=== PATIENT | male | born 1975 | race African-American/Black ===

== ENCOUNTER 2022-10-23 09:37 | Emergency (ER) | payer BC, SELFPAY ==
[2022-10-23 09:37] VITALS: BP 142/100; PULSE 77; RESP 18; TEMP 36.7; O2SAT 98; BMI 21.2
[2022-10-23 10:24] LABS: Hematocrit 33.9 % (42.0-52.0); Mean Corpuscular Volume 101.2 fL (80.0-98.0); Mean Platelet Volume 10.2 fL (9.4-12.4); Platelet Count 139 X10*3/uL (160-400); Red Blood Count 3.35 X10*6/uL (4.60-5.80); Red Cell Distribution Width 13.2 % (11.0-16.0)
[2022-10-23 10:25] LABS: Hemoglobin 11.4 g/dl (14.0-18.0); WBC ABN SCTR FOR CBC 1; White Blood Count 5.2 X10*3/uL (4.8-10.8)
[2022-10-23 10:26] LABS: Mean Corpuscular HGB Conc 33.6 g/dl (31.0-36.0)
[2022-10-23 10:33] VITALS: BP 135/84; PULSE 63; RESP 17; TEMP 37.1; O2SAT 100
--- NOTE | 2022-10-23 11:14 | ED_ITS ---
HPI - Abdominal Pain General Chief Complaint: Abdominal Pain Stated Complaint: Abdominal Pain Time Seen by Provider: 10/23/22 10:41 Source: patient Mode of arrival: ambulatory Limitations: no limitations History of Present Illness HPI narrative: 47-year-old male who presents emergency department for evaluation of abdominal pain. The patient states that he has been drinking 1/2 pt of Rebekah vincenzo, daily for months. He states that over the past 4 days he has not been able to drink alcohol secondary to abdominal pain. Patient points to his epigastric area describes the pain is a constant, not like sensation. He states he has had this pain in the past but the pain is now constant and severe, 7/10 at its worst. Patient also had nausea, vomiting and decreased oral intake secondary to his symptoms. Patient states that he was diagnosed with pancreatitis in March of 2022 the pain feels similar to his pancreatitis pain Related Data Previous Rx's Medication Instructions Recorded omeprazole 20 mg capsule,delayed 20 mg PO DAILY 30 days #30 caps 10/23/22 release Allergies Allergy/AdvReac Type Severity Reaction Status Date / Time No Known Allergies Allergy Unverified 12/14/19 16:56 [No Known Allergies*] Review of Systems Review of Systems Yes all other systems are reviewed and are negative [facility] Past Medical History [facility] Narrative: Past medical history: Pancreatitis, alcohol use disorder. Surgical history: None. Social history: He denies tobacco use. He does admit to drinking 1/2 pt of Rebekah daily but has not drink over the past 4 days, he does use a marijuana vape pen but does not use any other drugs. Social History Social History Alcohol intake: current Alcohol intake frequency: holidays/special occasions only Smoked in Last 30 Days: No Use of substances other than those prescribed or required for medical reasons: Yes Substance Use Type: Marijuana Advance Directives: No Advance Directives Information Provided: Yes Physical Exam ED Vital Signs: Vital Signs - 24 hr 10/23/22 09:37 10/23/22 10:33 10/23/22 12:10 Temperature 98.1 F 98.7 F Pulse Rate 77 63 71 Respiratory Rate 18 17 17 Blood Pressure 142/100 H 135/84 134/91 H Pulse Oximetry 98 100 99 Oxygen Delivery Method Room Air Room Air Room Air BMI result Body Mass Index 21.2 Const General: cooperative and no acute distress Orientation/consciousness: oriented to person and oriented to place Limitations: no limitations HENMT Head: Yes normal to inspection, Yes normocephalic and Yes atraumatic Ears: external ears normal General nose exam: Normal external nose present Face and sinus: Yes normal facial exam Mouth: Normal oral and palatal mucosa present Throat: Yes posterior oropharynx normal Eyes General: appearance normal, both eyes and all related structures Pupils: Equal, round and reactive pupils present Neck Neck: Yes normal visual inspection, Yes no lymphadenopathy, Yes trachea midline and Yes supple Chest Chest palpation & inspection: normal inspection of the chest and normal palpation of entire chest wall Resp Effort & Inspection: normal respiratory effort and able to speak in complete sentences Auscultation: clear to auscultation bilaterally Cardio Rate: regular rate Rhythm: regular rhythm Heart sounds: S1 normal heart sound present, S2 normal heart sound present and no murmurs GI Other: Abdomen is soft, patient has moderate epigastric tenderness, no rebound, no voluntary or involuntary guarding, no abdominal distension, normoactive bowel sounds General: Yes no CVA tenderness Back/Spine/Pelvis Back: no CVA tenderness Skin General skin exam: no rashes or lesions noted Neuro General: oriented to person and oriented to place Cranial nerves: Yes CN's II-XII intact bilaterally and Yes Equal, round and reactive pupils present Cognition (Neuro): normal cognition Motor exam (neuro): 5/5 motor strength present throughout Extrem General: Yes normal to inspection Psych Appearance: grossly normal Speech and movement: Normal speech and movement present Affect: normal affect Attitude: cooperative Thought process: Normal thought process present Thought content: Normal thought content present Medical Decision Making Medical Decision Making MDM Narrative: 47-year-old male who presents emergency department for evaluation of epigastric pain times 4 days, he has had similar pain in the past. Patient states he has been drinking 1/2 pt of Rebekah daily but has not been able to drink over the past 4 days secondary to his abdominal pain. Physical examination revealed normal vital signs. He did have tenderness palpation of his epigastric area otherwise was unremarkable. I ordered the following evaluation: CBC, CMP, lipase, lipid panel 1241: My interpretation patient's laboratory evaluation: The lab had difficulty getting a CMP secondary to lipemic blood. The patient's triglyceride level was 5680. Patient's sodium was low at 128 but this is most likely caused by the high lipids. Patient's LFTs were unobtainable due to high lipids patient's lipase was 20. My impression is that the patient's pain is secondary to alcoholic gastritis and I started on Prilosec 20 mg once a day for 1 month. The patient will need a fasting lipid panel and he may need treatment for hypertriglyceridemia but this will need to be confirmed by his PCP. Patient states he has an appointment to see Dr. Castro next week, I told him to call the office on Wednesday morning to arrange for an outpatient fast lipid panel. He was advised to stop drinking alcohol. Differential Diagnosis Differential Diagnoses: The differential diagnosis associated with the presentation includes Differential diagnosis includes was not limited to gastritis, alcohol gastritis, pancreatitis, esophagitis Admission/Observation Consideration of admission/observation: Escalation of care including admission/observation considered Lab Data [facility] Lab Attestation statement: I reviewed the patient's lab results. See [facility] 10/23/22 09:56 10/23/22 09:56 Labs: Lab Results 10/23/22 10/23/22 Range/Units 09:56 11:29 WBC 5.2 (4.8-10.8) X10*3/uL RBC 3.35 L (4.60-5.80) X10*6/uL Hgb 11.4 L (14.0-18.0) g/dl Hct 33.9 L (42.0-52.0) % MCV 101.2 H (80.0-98.0) fL MCH 34.0 H (27.0-33.0) pg MCHC 33.6 (31.0-36.0) g/dl RDW 13.2 (11.0-16.0) % Plt Count 139 L (160-400) X10*3/uL MPV 10.2 (9.4-12.4) fL Absolute Nucleated RBC 0.000 (0.0-0.012) X10*3/uL Nucleated RBC % (auto) 0.0 (0.0-0.2) /100WBC Sodium 125 L (135-145) mmol/L Potassium TNP Chloride 95 L (96-108) mmol/L Carbon Dioxide 19 L (22-29) mmol/L Anion Gap TNP BUN TNP Creatinine 0.87 (0.5-1.4) mg/dL Estim Creat Clear Calc 116.9 Estimated GFR > 60 Random Glucose TNP Calcium 8.6 (8.4-10.2) mg/dL Albumin 2.6 L (3.5-5.0) g/dL Triglycerides > 5680 mg/dL Cholesterol 1358 mg/dL LDL Cholesterol, Calc TNP HDL Cholesterol 13 mg/dL Lipase 20 (8-78) U/L Prescription Management I considered prescription management with: Pain Medication Chronic Conditions Patient?s care impacted by: Other (Chronic alcohol use disorder) Discharge Plan Discharge Clinical Impression: Hypertriglyceridemia, Alcohol use disorder Acute alcoholic gastritis Qualifiers: Gastritis bleeding: without bleeding Qualified Code(s): K29.20 - Alcoholic gastritis without bleeding Patient Disposition: Home, Self-Care Instructions: Gastritis (ED), Hyperlipidemia (DC) Additional Instructions: The lab was not able to complete your blood work since you had a very high fat(triglycerides) level in your blood (hypertriglyceridemia) A normal fat/triglyceride level is 199. Your triglyceride level was 5680. You need to call Dr. Castro's office on Wednesday morning to arrange a fasting lipid panel. You need to fast for at least 10-12 hours prior to get your blood redrawn to determine if your fat/lipid level in your blood is actually high pain If you have high triglycerides again then you will need to get started on medications by your doctor. I believe that your pain is due to inflammation of your stomach caused by drinking alcohol (alcoholic gastritis) You need to stop drinking alcohol. Take Prilosec (omeprazole) 20 mg pills, 1 pill once a day for 1 month. This medication shuts off your acid production and lets the inflammation in your stomach and esophagus heal. Follow-up with your doctor in 2 days. Please return to the emergency department if your symptoms get worse or if you develop any symptoms that are concerning to you. Prescriptions: New omeprazole 20 mg capsule,delayed release(DR/EC) 20 mg PO DAILY 30 Days Qty: 30 0RF
[2022-10-23 12:10] VITALS: BP 134/91; PULSE 71; RESP 17; O2SAT 99
[2022-10-23 12:17] LABS: Cholesterol 1358 mg/dL; HDL Cholesterol 13 mg/dL; Triglycerides > 5680 mg/dL
[2022-10-23 12:18] LABS: Lipase 20 U/L (8-78)
[2022-10-23 12:22] LABS: Calcium 8.6 mg/dL (8.4-10.2)
[2022-10-23 12:23] LABS: Albumin Level 2.6 g/dL (3.5-5.0)
[2022-10-23 12:26] LABS: Carbon Dioxide 19 mmol/L (22-29); Chloride 95 mmol/L (96-108); Sodium 125 mmol/L (135-145)
[2022-10-23 12:27] LABS: Creatinine Clr Calc Pharmacy 116.9; Estimated Glomerular Filt Rate > 60
== END 2022-10-23 13:24 | disposition home or self-care (01) ==
PROVIDERS: Emergency Provider Emergency Medicine Emergency Medical Services; PCP Internal Medicine
DX: K29.20 Alcoholic gastritis without bleeding (principal); E78.1 Pure hyperglyceridemia; F10.10 Alcohol abuse, uncomplicated; Y90.9 Presence of alcohol in blood, level not specified; Z79.899 Other long term (current) drug therapy
CPT/HCPCS: 36415; 80048; 80061; 80076; 83690; 85027; 99283; 99284

== ENCOUNTER 2024-01-04 11:22 | Emergency (ER) | payer BC, SELFPAY ==
[2024-01-04 11:39] VITALS: BP 141/74; PULSE 89; RESP 18; TEMP 37.2; O2SAT 99; BMI 21.8
--- NOTE | 2024-01-04 11:44 | ED_ITS ---
HPI - General Adult General Chief complaint: Upper Respiratory Symptoms Stated complaint: Swollen neck sent from urgent care Time Seen by Provider: 01/04/24 12:53 Source: patient Mode of arrival: ambulatory Limitations: no limitations History of Present Illness ED Provider: Yoan BERNABE HPI narrative: 48-year-old healthy male with history of GERD presents to ED for right neck pain for couple of days. Patient states chills and body aches. Patient denies any fever, drooling, change in voice, chest pain, shortness of breath, coughing up blood, ear pain, any rash. Patient denies any recent dental work. Related Data Previous Rx's ?Medication ?Instructions ?Recorded omeprazole 20 mg capsule,delayed 20 mg PO DAILY 30 days #30 caps 10/23/22 release naproxen 500 mg tablet 500 mg PO BID PRN pain 7 days #14 01/04/24 tabs Allergies Allergy/AdvReac Type Severity Reaction Status Date / Time No Known Allergies Allergy Verified 01/04/24 11:44 [No Known Allergies*] Review of Systems Review of Systems: Right neck pain Yes all other systems are reviewed and are negative [facility] Social History Social History Alcohol intake: current Alcohol intake frequency: holidays/special occasions only Substance Use Type: Marijuana Advance Directives: No Advance Directives Information Provided: Yes Physical Exam ED Vital Signs: Vital Signs - 24 hr 01/04/24 11:39 01/04/24 13:29 Temperature 98.9 F 98.9 F Pulse Rate 89 89 Respiratory Rate 18 18 Blood Pressure 141/74 H 141/74 H Pulse Oximetry 99 99 BMI result Body Mass Index 21.8 Const General: cooperative, healthy appearing, comfortable, no acute distress, well developed, alert, awake and Physically active Orientation/consciousness: patient oriented x3 HENMT Head: Yes normal to inspection, Yes No palpable skull fracture present, Yes normocephalic and Yes atraumatic Ears: hearing grossly normal bilaterally, external ears normal, TM's normal bilaterally, TM normal on the right, TM normal on the left, EAC's normal, mastoids normal and no periauricular adenopathy General nose exam: Normal external nose present, Normal nares present and No nasal polyps present Face and sinus: Yes normal facial exam and Yes sinuses nontender Mouth: Normal oral and palatal mucosa present, lip normal and tongue normal Teeth and gingiva: dentition normal and gingiva normal Throat: Yes posterior oropharynx normal, Yes tonsils normal and Yes uvula midline Eyes General: appearance normal, both eyes and all related structures Neck Other: Negative for any obvious swelling of the neck, right side of face, right side of neck, or submandibular. Negative for any hard lymphadenopathy. Neck: Yes normal visual inspection, Yes full ROM, Yes no lymphadenopathy, Yes no meningeal signs, Yes trachea midline, Yes supple, No anterior neck swelling, Yes lymphadenopathy ( RIght small cervical lymph node that is tender.) and No tender Chest Chest palpation & inspection: normal inspection of the chest and normal palpation of entire chest wall Resp Effort & Inspection: normal respiratory effort and able to speak in complete sentences Auscultation: clear to auscultation bilaterally Cardio Jugular venous distension: no JVD Heart sounds: S1 normal heart sound present and S2 normal heart sound present GI Inspection: Yes normal to inspection Palpation (GI): Soft to palpation, not firm, nontender, no guarding and not rigid General: No CVA tenderness and Yes no CVA tenderness Back/Spine/Pelvis Back: no CVA tenderness, No CVA tenderness and No back tenderness Skin General skin exam: no rashes or lesions noted, elasticity normal and turgor normal Neuro General: patient oriented x3, gait normal, tone normal, moves all extremities, Normal light touch and pain sensation, no meningeal signs, no focal motor deficits, CN's II-XI intact bilaterally and normal sensation to monofilament Extrem General: Yes normal to inspection, Yes full ROM and Yes capillary refill normal Psych Appearance: grossly normal, well kempt and not disheveled Course Course Course Narrative: RME; done by TORI Roach. 48-year-old male presents to ED for right sided sore throat right neck pain that is tender to touch. Patient was sent by urgent care due to them not having any swabs. Physical exam negative for any right facial, submandibular, or neck swelling. Positive for right tender cervical lymphadenopathy. Oral exam negative for signs for peritonsillar abscess, retropharyngeal abscess, Jd angina. Patient denies any recent dental work. SARs strep ordered. Medical Decision Making Medical Decision Making MDM Narrative: 48-year-old male presents to ED for sore throat and right neck tender. Patient denies any recent dental work, or chiropractor cracking of the neck work, drooling, change in voice, weight loss, or night sweats. Physical exam indicates right mild cervical lymphadenopathy. Negative for any hard nontender lymphadenopathy to indicate lymphoma. Not suspecting Jd's angina, thryoid storm, hyperthyroidism, carotid/vetebral dissection or retropharyngeal abscess. Not suspecting peritonsillar abscess. Patient is explained worrisome signs and informed to follow up with primary care provider and return to the ED immediately. Differential Diagnosis Differential Diagnoses: The differential diagnosis associated with the presentation includes (SARs, COVID, influenza, strep, lymphadenopathy) Admission/Observation Consideration of admission/observation: Escalation of care including admission/observation considered Lab Data MDM Lab Attestation statement: I reviewed the patient's lab results. Labs: Lab Results 01/04/24 Range/Units 12:04 Influenza Type A (PCR) NEGATIVE (Negative) Influenza Type B (PCR) NEGATIVE (Negative) RSV RNA Qual (PCR) NEGATIVE (Negative) SARS-CoV-2 RNA (RT-PCR) NEGATIVE (Negative) S. pyogenes GrpA ARNALDO Negative (Negative) Independent Historian Clinical information obtained from an independent historian. History obtained from or confirmed by: Other (Patient) External Record Review External record reviewed: Other (prior vists) Prescription Management I considered prescription management with: Pain Medication Discharge Plan Discharge Clinical Impression: Lymphadenopathy Patient Disposition: Home, Self-Care Instructions: Lymphadenopathy (ED) Additional Instructions: Recommend follow-up with primary care provider. Return to the ED immediately for any night sweats, weight loss, fever, chills, heart palpitations, or throat, drooling, change in voice, neck swelling, facial swelling, or any other concerning symptoms. Prescriptions: New naproxen 500 mg tablet 500 mg PO BID PRN (Reason: pain) 7 Days Qty: 14 0RF No Action omeprazole 20 mg capsule,delayed release(DR/EC) 20 mg PO DAILY 30 Days Qty: 30 0RF Stand Alone Forms: Work/School Release Interventions: ED Discharge Assessment Last Done: 01/04/24 13:29 Discharge Date/Time: 01/04/24 13:28 Print Language: Guamanian
[2024-01-04 12:22] LABS: IDNOW Serial# 08D9AD1C; Strep A Nucleic Acid Negative (Negative)
[2024-01-04 12:47] LABS: Influenza A PCR NEGATIVE (Negative); Influenza B PCR NEGATIVE (Negative); Resp Syncy Virus RNA Qual PCR NEGATIVE (Negative); SARS COV2 PCR INHOUSE NEGATIVE (Negative)
[2024-01-04 13:29] VITALS: BP 141/74; PULSE 89; RESP 18; TEMP 37.2; O2SAT 99
== END 2024-01-04 13:28 | disposition home or self-care (01) ==
PROVIDERS: Physician Assistant; Emergency Provider Emergency Medicine
DX: R59.1 Generalized enlarged lymph nodes (principal); M54.2 Cervicalgia; R07.0 Pain in throat; Z03.818 Encounter for observation for suspected exposure to other biological agents ruled out
CPT/HCPCS: 0241U; 87651; 99282; 99283